=== PATIENT | male | born 1945 | race Caucasian/White ===

== ENCOUNTER 2021-06-06 23:58 | Inpatient (IN) | payer MEDICARE ==
[2021-06-07] MEDS ORDERED: MORPHINE SULFATE 4 MG/ML SYRINGE IV STA (00:05)
--- NOTE | 2021-06-07 00:13 | ED ---
Abdominal Pain HPI - General Stated Complaint: Nausea,Vomiting Time Seen by Provider: 06/07/21 00:04 Source: patient Mode of arrival: EMS Limitations: no limitations - History of Present Illness Initial Comments: 's patient is 76-year-old man who presents with complaint of periumbilical abdominal pain. It had started around 4 PM. The patient states that he is also having nausea and vomiting. He indicates the site of his previous umbilical hernia repair. Patient states that this surgery had been performed at [facility] approximately [address] Apodaca. Patient states that this. Last approximate 6 months and then recurred. MD Complaint: abdominal pain Onset/Timin -: hour(s) Location: periumbilical Radiation: none Migration to: no migration Severity: severe Severity scale (1-10): 10 Quality: aching Consistency: constant Improves With: nothing Worsens With: nothing Associated Symptoms: nausea, vomiting - Related Data Allergies Allergy/AdvReac Type Severity Reaction Status Date / Time Sulfa (Sulfonamide Allergy Rash/Hives Verified 06/07/21 01:33 Antibiotics) Review of Systems ROS Statement: Those systems with pertinent positive or pertinent negative responses have been documented in the HPI. ROS Other: All systems not noted in ROS Statement are negative. Constitutional: Denies: fever, chills Respiratory: Denies: cough, dyspnea Cardiovascular: Denies: chest pain, palpitations Gastrointestinal: Reports: abdominal pain, nausea, vomiting. Denies: diarrhea, hematemesis, melena, hematochezia Genitourinary: Denies: dysuria, hematuria Musculoskeletal: Denies: back pain Skin: Denies: rash Neurological: Denies: headache, weakness General Exam General appearance: alert, in no apparent distress Head exam: Present: atraumatic, normocephalic Eye exam: Present: normal appearance. Absent: scleral icterus, conjunctival injection ENT exam: Present: mucous membranes dry Neck exam: Present: normal inspection Respiratory exam: Present: normal lung sounds bilaterally. Absent: respiratory distress, wheezes, rales, rhonchi, stridor Cardiovascular Exam: Present: regular rate, normal rhythm, normal heart sounds. Absent: systolic murmur, diastolic murmur, rubs, gallop GI/Abdominal exam: Present: soft, hernia. Absent: distended, tenderness, guarding, rebound, rigid, mass Extremities exam: Present: normal inspection, normal capillary refill. Absent: pedal edema, calf tenderness Back exam: Present: normal inspection Neurological exam: Present: alert Skin exam: Present: warm, dry, intact, normal color. Absent: rash Course Vital Signs 06/07/21 06/07/21 00:07 02:35 Temperature 98.8 F Pulse Rate 95 97 Respiratory 20 18 Rate Blood Pressure 187/109 177/105 O2 Sat by Pulse 99 97 Oximetry Medical Decision Making - Lab Data Result diagrams: 06/07/21 00:22 06/07/21 00:22 Lab Results 06/07/21 06/07/21 06/07/21 Range/Units 00: 00:22 00:22 WBC 12.0 H (3.8-10.6) k/uL RBC 4.83 (4.30-5.90) m/uL Hgb 14.7 (13.0-17.5) gm/dL Hct 44.7 (39.0-53.0) % MCV 92.6 (80.0-100.0) fL MCH 30.4 (25.0-35.0) pg MCHC 32.8 (31.0-37.0) g/dL RDW 14.3 (11.5-15.5) % Plt Count 289 (150-450) k/uL MPV 7.7 Neutrophils % 81 % Lymphocytes % 11 % Monocytes % 6 % Eosinophils % 1 % Basophils % 0 % Neutrophils # 9.7 H (1.3-7.7) k/uL Lymphocytes # 1.3 (1.0-4.8) k/uL Monocytes # 0.7 (0-1.0) k/uL Eosinophils # 0.2 (0-0.7) k/uL Basophils # 0.1 (0-0.2) k/uL Sodium 134 L (137-145) mmol/L Potassium 4.4 (3.5-5.1) mmol/L Chloride 102 (98-107) mmol/L Carbon Dioxide 17 L (22-30) mmol/L Anion Gap 15 mmol/L BUN 30 H (9-20) mg/dL Creatinine 1.19 (0.66-1.25) mg/dL Est GFR (CKD-EPI)AfAm 69 (>60 ml/min/1.73 sqM) Est GFR (CKD-EPI)NonAf 60 (>60 ml/min/1.73 sqM) Glucose 130 H (74-99) mg/dL Plasma Lactic Acid Ronald 1.4 (0.7-2.0) mmol/L Calcium 10.1 (8.4-10.2) mg/dL Total Bilirubin 0.5 (0.2-1.3) mg/dL AST 25 (17-59) U/L ALT 14 (4-49) U/L Alkaline Phosphatase 110 (38-126) U/L Total Protein 7.3 (6.3-8.2) g/dL Albumin 4.3 (3.5-5.0) g/dL Amylase 57 (30-110) U/L Lipase 49 (23-300) U/L Disposition Clinical Impression: Ventral hernia with bowel obstruction Disposition: ADMITTED IP TO THIS [facility] Condition: Serious Is patient prescribed a controlled substance at d/c from ED?: No Referrals: Floyd Yin DO [REFERRING] - 1-2 days
[2021-06-07 00:28] LABS: Basophils # (A) 0.1 k/uL (0-0.2); Basophils % (A) 0 %; Eosinophils # (A) 0.2 k/uL (0-0.7); Eosinophils % (A) 1 %; HCT 44.7 % (39.0-53.0); HGB 14.7 gm/dL (13.0-17.5); Lymphocytes # (A) 1.3 k/uL (1.0-4.8); Lymphocytes % (A) 11 %; MCH 30.4 pg (25.0-35.0); MCHC 32.8 g/dL (31.0-37.0); MCV 92.6 fL (80.0-100.0); Mean Platelet Volume 7.7; Monocytes # (A) 0.7 k/uL (0-1.0); Monocytes % (A) 6 %; Neutrophils # (A) 9.7 k/uL (1.3-7.7); Neutrophils % (A) 81 %; Platelet Count 289 k/uL (150-450); RBC 4.83 m/uL (4.30-5.90); RDW 14.3 % (11.5-15.5)
[2021-06-07 00:39] LABS: Albumin 4.3 g/dL (3.5-5.0); Calcium 10.1 mg/dL (8.4-10.2); Potassium 4.4 mmol/L (3.5-5.1); Total Bilirubin 0.5 mg/dL (0.2-1.3); Total Protein 7.3 g/dL (6.3-8.2)
[2021-06-07] MEDS ORDERED: HYDROmorphone 1 MG/ML 1 ML SYRINGE IVP STA ×2 (01:19→05:02)
--- NOTE | 2021-06-07 02:58 | CT ---
EXAMINATION TYPE: CT abdomen pelvis wo con DATE OF EXAM: 06/07/2021 COMPARISON: None HISTORY: Pt has perturding hernia CT DLP: 1812.4 mGycm Automated exposure control for dose reduction was used. Images obtained from the diaphragm to the floor the pelvis without contrast. Lung bases are clear of consolidation. There is no pleural effusion. Heart size is normal. There is n o pericardial effusion. Liver and spleen are intact. Gallbladder is intact. Stomach is intact. There is a fluid-filled distended stomach. There is no pancreatic mass. There is no adrenal mass. Kidneys have normal size. There is no hydronephrosis. Ureters are not dilat ed. Bladder distends smoothly. 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 There is no free fluid in the pelvis. There are multiple dilated fluid-filled small bowel loops throughout the abdomen. Large bowel is not dilated. There is anterior abdominal wall hernia containing multiple small bowel loops. This appears to be transition point. The distal small bowel is not dilated. There is some incarceration of the sma ll bowel. There is no free air. There is no ascites. Lumbar vertebra have normal alignment. There is no compression fracture. There is multilevel vacuum d isks. Posterior elements are intact. The bony pelvis is intact. IMPRESSION: Incarcerated anterior abdominal wall ventral hernia containing dilated small bowel loops. hernia measuring 18 x 10 cm. The opening is 6 cm. There is mechanical small bowel obstruction. Small bowel dilated up to 4 cm.
--- NOTE | 2021-06-07 03:03 | XR ---
EXAMINATION TYPE: XR KUB portable DATE OF EXAM: 06/07/2021 COMPARISON: NONE HISTORY: NG tube placement TECHNIQUE: 2 views FINDINGS: There is nasogastric tube with the tip over the gastric fundus. There are some dilated smal l bowel loops in the mid abdomen. 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 Lung bases are clear. IMPRESSION: Dilated small bowel suggestive of small bowel obstruction. No free air. NG tube in good p osition in the gastric fundus.
[2021-06-07] MEDS ORDERED: HYDROmorphone 0.5 MG/0.5 ML SYRINGE IVP PRN (04:15)
[2021-06-07] MEDS ORDERED: ONDANSETRON 4 MG/2 ML VIAL IVP PRN (04:15)
[2021-06-07] MEDS ORDERED: NALOXONE 0.4 MG/ML 1 ML VIAL IV PRN (04:15)
[2021-06-07] MEDS ORDERED: LABETALOL 5 MG/ML VIAL MDV IVP STA (05:03)
[2021-06-07] MEDS: SODIUM CHLORIDE 0.9% 1,000 ML IV SCH (05:35)
[2021-06-07 05:48] LABS: Appearance,Urine Clear (Clear); Bilirubin,Urine Negative (Negative); Blood,Urine Negative (Negative); Color,Urine Yellow; Glucose,Urine (UA) Negative (Negative); Ketones,Urine 2+ (Negative); Leukocyte Esterase,Urine Negative (Negative); Nitrite,Urine Negative (Negative); PH, Urine 5.5 (5.0-8.0); Protein,Urine Negative (Negative); Specific Gravity,Urine 1.021 (1.001-1.035); Urobilinogen,Urine <2.0 mg/dL (<2.0)
[2021-06-07] MEDS: HYDROmorphone 1 MG/ML 1 ML SYRINGE IVP PRN (09:53)
--- NOTE | 2021-06-07 10:17 | XR ---
EXAMINATION TYPE: XR chest 1V portable DATE OF EXAM: 06/07/2021 10:01 AM COMPARISON: Radiograph same day CLINICAL INDICATION:Male, 76 years old with history of NG tube repositioned ; TECHNIQUE: Frontal view of the chest. FINDINGS: Lungs/Pleura: There is no evidence of pleural effusion, focal consolidation, or pneumothorax. Pulmonary vascularity: Unremarkable. Heart/mediastinum: Cardiomediastinal silhouette is unremarkable. Musculoskeletal: No acute osseous pathology. Lines/Tubes: Interval placement of nasogastric distal tip projecting in the gastric fundus. The side-port projects in the distal esophagus. IMPRESSION: 1. Interval placement of nasogastric tube with side-port in the distal esophagus. Consider advancemen t of 10 cm for optimal placement. 2. No acute cardiopulmonary disease/process.
[2021-06-07] MEDS ORDERED: BENZOCAINE/MENTHOL LOZENG 1 EACH LOZENGE MUCOUS MEM PRN (17:17)
[2021-06-08] MEDS: HYDROmorphone 1 MG/ML 1 ML SYRINGE IVP PRN (01:14)
[2021-06-08] MEDS: SODIUM CHLORIDE 0.9% 1,000 ML IV SCH ×3 (01:15→17:17)
--- NOTE | 2021-06-08 12:07 | P.GSHP ---
History of Present Illness H&P Date: 06/08/21 Chief Complaint: Incarcerated ventral hernia This a 76-year-old male who was admitted through the emergency room with complaints of abdominal pain nausea. The patient has a history of previous umbilical hernia repair. Patient is developed a recurrent incisional hernia at his repair site. Patient has a large incarcerated hernia. On CAT scan there is several incarcerated loop of small bowel within the hernia. Past Medical History Past Medical History: No Reported History History of Any Multi-Drug Resistant Organisms: None Reported Additional Past Surgical History / Comment(s): hernia surgery 2017 left knee replacement 2007 right knee replacement 2014 L hip 03/27 Past Psychological History: Depression Smoking Status: Unknown if ever smoked Past Drug Use History: Unable to Obtain Medications and Allergies Home Medications Medication Instructions Recorded Confirmed Type Aspirin EC [Ecotrin Low Dose] 81 mg PO DAILY 06/07/21 06/07/21 History Atorvastatin [Lipitor] 10 mg PO DAILY 06/07/21 06/07/21 History Citalopram Hydrobromide [CeleXA] 40 mg PO DAILY 06/07/21 06/07/21 History Doxazosin [Cardura] 1 mg PO DAILY 06/07/21 06/07/21 History HYDROcodone/APAP 5-325MG [[place] 1 tab PO TID PRN 06/07/21 06/07/21 History 5-325] Ibuprofen [Motrin] 600 mg PO Q8HR PRN 06/07/21 06/07/21 History Losartan/Hydrochlorothiazide 1 tab PO DAILY 06/07/21 06/07/21 History [Losartan-Hctz 100-25 mg Tab] Omeprazole [PriLOSEC] 20 mg PO AC-BID 06/07/21 06/07/21 History Testosterone Cypionate 200 mg IM Q14D 06/07/21 06/07/21 History [Depo-Testosterone] Timolol 0.5% Ophth Soln [Timoptic 1 drop BOTH EYES DAILY 06/07/21 06/07/21 History 0.5% Ophth Soln] buPROPion XL [Wellbutrin XL] 300 mg PO DAILY 06/07/21 06/07/21 History Allergies Allergy/AdvReac Type Severity Reaction Status Date / Time Sulfa (Sulfonamide Allergy Rash/Hives Verified 06/07/21 01:33 Antibiotics) Surgical - Exam Vital Signs Temp Pulse Resp BP Pulse Ox 98.8 F 95 20 187/109 99 06/07/21 00:07 06/07/21 00:07 06/07/21 00:07 06/07/21 00:07 06/07/21 00:07 - General well developed, no distress - Eyes PERRL - ENT normal pinna - Neck no masses - Respiratory normal expansion - Cardiovascular Rhythm: regular - Abdomen Large incisional hernia located near the umbilicus. Abdomen: soft, non tender Results - Labs 06/07/21 00:22 06/07/21 00:22 Assessment and Plan Assessment: Incarcerated incisional hernia. Patient will have nasogastric tube decompression today. We will repair his hernia once his condition is stable.
--- NOTE | 2021-06-08 12:08 | P.PN ---
Progress Note - Text Progress Note Date: 06/08/21 Patient feels better. He's had some flatus. On exam vital signs are stable. Abdomen soft. Incarcerated incisional hernia is soft her. Patient will undergo repair of incarcerated incisional hernia normal.
[2021-06-08] MEDS ORDERED: ACETAMINOPHEN TAB 325 MG TAB PO PRN (12:21)
[2021-06-08] MEDS ORDERED: HYDROcodone/APAP 5-325MG 1 EACH TAB PO PRN (14:10)
[2021-06-08] MEDS: HEPARIN SODIUM,PORCINE/PF 5,000 UNIT/0.5 ML SYRINGE SQ SCH ×2 (15:25→21:44)
[2021-06-08] MEDS: PANTOPRAZOLE 40 MG/10 ML VIAL IVP SCH (15:25)
--- NOTE | 2021-06-08 19:29 | CONS ---
CONSULTATION DATE OF SERVICE: 06/08/2021 REASON FOR CONSULTATION: Advice regarding depression and other medical issues, requested by Dr. Angel. HISTORY OF PRESENT ILLNESS: This 76-year-old gentleman with a past medical history of depression yesterday had knee surgery with left knee replacement, being followed by Dr. Yin in the outpatient setting, was admitted with incarcerated incisional hernia. There is no history of any fever, rigors or chills. No history of headache, loss of consciousness, seizures. Dr. Angel is planning surgery. Patient's sodium is 134. PAST MEDICAL HISTORY: History of hernia surgery, history of left knee replacement, history of depression. HOME MEDICATIONS: Reviewed. They include hydrocodone, aspirin, timolol, ibuprofen, omeprazole, losartan, doxazosin, Celexa, bupropion, Lipitor. ALLERGIES: SULFA. FAMILY HISTORY: No history of heart disease or strokes in the family. SOCIAL HISTORY: No history of smoking. No history of alcohol intake. REVIEW OF SYSTEMS: ENT: No diminished hearing. No diminished vision. CARDIOVASCULAR SYSTEM: No angina, palpitations. RESPIRATORY SYSTEM: As mentioned earlier. GI: As mentioned earlier. : No dysuria. NERVOUS SYSTEM: No numbness, weakness. ALLERGY/IMMUNOLOGY: No asthma or hay fever. MUSCULOSKELETAL: As mentioned earlier. HEMATOLOGY/ONCOLOGY: No history of anemia. ENDOCRINE: No history of diabetes or hypothyroidism. CONSTITUTIONAL: As mentioned earlier. DERMATOLOGY: Negative. RHEUMATOLOGY: Negative. PSYCHIATRY: As mentioned earlier. PHYSICAL EXAMINATION: Patient is alert and oriented x3. Pulse is 98, blood pressure 147/60, respiration 20, temperature 98 degrees, pulse ox 96% on room air. HEENT: Conjunctivae normal. NECK: No jugular venous distention. CARDIOVASCULAR: S1, S2 muffled. RESPIRATION: Breath sounds diminished at the bases. No rhonchi. No crackles. ABDOMEN: Soft. Ventral incisional hernia appreciated. Non-tender. No mass palpable. LEGS: No edema. No swelling. NERVOUS SYSTEM: Higher functions as mentioned earlier. Moves all 4 limbs. No focal motor or sensory deficit. LYMPHATICS: No lymph node palpable in neck, axillae or groin. SKIN: No ulcer, rash, bleeding. JOINTS: No active deforming arthropathy. LABS: WBC 12, sodium 134, glucose 130. ASSESSMENT: 1. Small-bowel obstruction, possibly secondary to incarcerated incisional hernia. 2. Hypertension. 3. Hyperlipidemia. 4. Increased white count. 5. Hyponatremia, mild. 6. History of hernia surgery. 7. History of left knee replacement. 8. History of depression. 9. Obesity with body mass index of 35.6. 10.FULL CODE. RECOMMENDATIONS AND DISCUSSION: In this 76-year-old gentleman who presented with multiple medical problems, at this time we will monitor the patient closely, continue the current medications, continue symptomatic treatment. Otherwise at this time, DVT prophylaxis. Resume the home medication. Monitor blood pressure closely. Will follow the patient closely with you. The patient's exercise tolerance appears to be excellent. The patient may be asked to follow up with primary physician after discharge. Thank you, Dr. Angel, for letting us participate in the care of this patient. CRISTIANL / NOAN: [id number] /
[2021-06-09] MEDS ORDERED: ceFAZolin 3 GM in SODIUM CHLORIDE 0.9% 100 ML IVPB PRN (05:00)
[2021-06-09] MEDS: HEPARIN SODIUM,PORCINE/PF 5,000 UNIT/0.5 ML SYRINGE SQ SCH ×3 (09:24→19:41)
[2021-06-09] MEDS: TIMOLOL 0.5% OPHTH DROPS 5 ML BTL BOTH EYES SCH (09:29)
[2021-06-09] MEDS: PANTOPRAZOLE 40 MG/10 ML VIAL IVP SCH (09:29)
[2021-06-09 11:38] LABS: Basophils % (A) 0 %; Eosinophils # (A) 0.1 k/uL (0-0.7); Eosinophils % (A) 1 %; HCT 38.7 % (39.0-53.0); HGB 12.6 gm/dL (13.0-17.5); Lymphocytes # (A) 0.9 k/uL (1.0-4.8); Lymphocytes % (A) 19 %; MCH 31.1 pg (25.0-35.0); MCHC 32.4 g/dL (31.0-37.0); MCV 95.9 fL (80.0-100.0); Mean Platelet Volume 7.7; Monocytes # (A) 0.4 k/uL (0-1.0); Monocytes % (A) 9 %; Neutrophils # (A) 3.3 k/uL (1.3-7.7); Neutrophils % (A) 68 %; Platelet Count 229 k/uL (150-450); RBC 4.04 m/uL (4.30-5.90); RDW 14.4 % (11.5-15.5); WBC 4.9 k/uL (3.8-10.6)
[2021-06-09 11:55] LABS: African American GFR (CKD) >90 (>60 ml/min/1.73 sqM); Anion Gap 7 mmol/L; Blood Urea Nitrogen 22 mg/dL (9-20); Calcium 8.7 mg/dL (8.4-10.2); Carbon Dioxide 23 mmol/L (22-30); Chloride 107 mmol/L (98-107); Glucose 89 mg/dL (74-99); Non-African American GFR(CKD) 78 (>60 ml/min/1.73 sqM); Sodium 137 mmol/L (137-145)
[2021-06-09] MEDS: LOSARTAN-HCTZ 50-12.5 MG 1 EACH TAB PO SCH (13:29)
[2021-06-09] MEDS: buPROPion XL 300 MG TAB.ER.24H PO SCH (13:29)
[2021-06-09] MEDS: CITALOPRAM HYDROBROMIDE 20 MG TAB PO SCH (13:29)
[2021-06-09] MEDS: DOXAZOSIN 1 MG TAB PO SCH (13:29)
[2021-06-09] MEDS ORDERED: IV FLUID CONTINUATION 400 ML IV ONE (14:20)
[2021-06-09] MEDS ORDERED: ONDANSETRON 4 MG/2 ML VIAL IVP ONE (14:30)
[2021-06-09] MEDS ORDERED: DEXAMETHASONE SOD PHOSPHATE 4 MG/ML 1 ML VIAL IV ONE (14:30)
--- NOTE | 2021-06-09 14:39 | P.PN ---
Progress Note - Text Progress Note Date: 06/09/21 Patient will be scheduled for repair of incarcerated incisional hernia today.
[2021-06-09] MEDS ORDERED: ROCURONIUM 10 MG/ML (5 ML VIAL) IV ONE (15:00)
[2021-06-09] MEDS ORDERED: SUCCINYLCHOLINE CHLORIDE 100 MG/5 ML SYR IV ONE (15:00)
[2021-06-09] MEDS ORDERED: GLYCOPYRROLATE 0.2 MG/ML 2 ML VIAL ONE (15:00)
[2021-06-09] MEDS ORDERED: KETOROLAC 15 MG/ML 1 ML VIAL ONE (15:00)
[2021-06-09] MEDS ORDERED: PROPOFOL 10 MG/ML 20 ML VIAL IV ONE (15:00)
[2021-06-09] MEDS ORDERED: KETAMINE 10 MG/ML 20 ML VIAL ONE (15:00)
[2021-06-09] MEDS ORDERED: fentaNYL (PF) 50 MCG/ML 2 ML AMP ONE (15:00)
[2021-06-09] MEDS ORDERED: LIDOCAINE 1% INJ 10MG/ML (20 ML MDV) ONE (15:00)
[2021-06-09] MEDS ORDERED: NEOSTIGMINE 1 MG/ML 10 ML VIAL ONE (15:00)
[2021-06-09] MEDS ORDERED: MIDAZOLAM 2 MG/2 ML VIAL ONE (15:00)
[2021-06-09] MEDS ORDERED: HYDROmorphone 1 MG/ML 1 ML SYRINGE IVP PRN (16:20)
--- NOTE | 2021-06-09 16:20 | P.OP ---
Date of Procedure: 06/09/21 Preoperative Diagnosis: Incarcerated incisional hernia Postoperative Diagnosis: Incarcerated incisional hernia Procedure(s) Performed: Open repair of incarcerated incisional hernia with mesh Anesthesia: SHEELA Surgeon: Daniel Angel Estimated Blood Loss (ml): 25 Pathology: other (Hernia sac) Condition: stable Disposition: PACU Description of Procedure: The patient's placed on the operative table in supine position. He received general endotracheal tube anesthesia. His abdomen was prepped and draped usual fashion. The skin was incised in midline at the hernia. Using blunt sharp dissection with cautery the hernia sac was dissected free from subcutaneous tissues. Hernia sac was opened and contained incarcerated small bowel. This placed back within the peritoneal cavity. The hernia sac was excised and sent to pathology. The fascial defect was closed with. 0 Ethibond suture. #1 Marya fix suture was used to buttress the repair. A piece of Prolene mesh was placed over top apparent secured was secure strap tacker. A ALINE drains placed over top of the repair brought through separate stab incision. The Main's fascia closed with 0 Vicryl. Skin was closed with elvin. Patient top she will he was sent to recovery in stable condition. The hernia measured approximately 15 x 5 cm
[2021-06-09] MEDS ORDERED: LABETALOL 5 MG/ML VIAL MDV IV ONE ×2 (16:30→16:45)
[2021-06-09] MEDS ORDERED: LACTATED RINGERS 1,000 ML IV ONE (16:31)
[2021-06-09] MEDS ORDERED: HYDROmorphone 0.5 MG/0.5 ML SYRINGE IVP ONE (16:43)
[2021-06-09] MEDS ORDERED: hydrALAZINE HCL 20 MG/ML 1 ML VIAL IVP PRN (17:31)
--- NOTE | 2021-06-09 18:54 | PN ---
PROGRESS NOTE DATE OF SERVICE: 06/09/2021 This 76-year-old gentleman who was admitted with inguinal hernia and possibly incarceration is being slated for surgery by Dr. Angel. No chest pain. No palpitations. No fever. Patient underwent open repair of incarcerated incisional hernia with mesh. No chest pain. No palpitations. No fever. PHYSICAL EXAMINATION: Alert and oriented x3. Pulse 77, blood pressure 117/85, respiration 18, temperature 98.2, pulse ox 98% on 2 L. HEENT: Conjunctivae normal. Oral mucosa moist. NECK: No jugular venous distention. No lymph node enlargement. CARDIOVASCULAR: S1, S2, muffled. No S3, no S4, RESPIRATORY: Diminished breath sounds at the bases. No rhonchi, no crackles. ABDOMEN: Soft. Incisional hernia present. LEGS: No edema, no swelling. NERVOUS SYSTEM: No focal deficits. LABS: WBC 4, hemoglobin 12.6. Other labs are noted. ASSESSMENT: 1. Small-bowel obstruction possibly secondary to incarcerated incisional hernia status post open repair of incarcerated incisional hernia with mesh. 2. Hypertension. 3. Hyperlipidemia. 4. Increased WBC. 5. Hyponatremia, mild. 6. History of hernia surgery. 7. History of left knee replacement. 8. History of depression. 9. Obesity with body mass index of 35.6. 10.FULL CODE. RECOMMENDATIONS: Recommend to continue current medications and symptomatic treatment. Monitor blood pressure closely. We will initiate Norvasc to the current regimen and use hydralazine p.r.n. Further recommendations to follow. MMODL / IJN: [id number] /
[2021-06-09] MEDS: HYDROmorphone 1 MG/ML 1 ML SYRINGE IVP PRN (19:40)
[2021-06-09] MEDS: amLODIPine 10 MG TAB PO SCH (19:43)
[2021-06-09] MEDS: SODIUM CHLORIDE 0.9% 1,000 ML IV SCH (21:30)
[2021-06-10] MEDS: SODIUM CHLORIDE 0.9% 1,000 ML IV SCH ×2 (00:39→17:20)
[2021-06-10] MEDS ORDERED: HYDROcodone/APAP 5-325MG 1 EACH TAB PO PRN (09:22)
[2021-06-10] MEDS: PANTOPRAZOLE 40 MG/10 ML VIAL IVP SCH (09:24)
[2021-06-10] MEDS: DOXAZOSIN 1 MG TAB PO SCH (09:24)
[2021-06-10] MEDS: LOSARTAN-HCTZ 50-12.5 MG 1 EACH TAB PO SCH (09:24)
[2021-06-10] MEDS: CITALOPRAM HYDROBROMIDE 20 MG TAB PO SCH (09:24)
[2021-06-10] MEDS: amLODIPine 10 MG TAB PO SCH (09:24)
[2021-06-10] MEDS: buPROPion XL 300 MG TAB.ER.24H PO SCH (09:24)
[2021-06-10] MEDS: HEPARIN SODIUM,PORCINE/PF 5,000 UNIT/0.5 ML SYRINGE SQ SCH ×2 (09:24→21:11)
[2021-06-10] MEDS: TIMOLOL 0.5% OPHTH DROPS 5 ML BTL BOTH EYES SCH (09:26)
--- NOTE | 2021-06-10 14:00 | P.DS ---
Providers Date of admission: 06/07/21 04:16 Expected date of discharge: 06/10/21 Attending physician: Daniel Angel Consults: 06/08/21 12:08 Consult Physician Routine Consulting Provider: Dhiraj Webb Consult Reason/Comments: Medical management Do you want consulting provider notified?: Yes Primary care physician: Tom Yin Hospital Course: Discharge diagnosis 1. Incarcerated incisional hernia status post open repair of incarcerated incisional hernia with mesh Hospital course This a 76-year-old male who was admitted through the emergency room with complaints of abdominal pain nausea. The patient has a history of previous umbilical hernia repair. Patient is developed a recurrent incisional hernia at his repair site. Patient has a large incarcerated hernia. On CAT scan there is several incarcerated loop of small bowel within the hernia. Patient status post open repair of incarcerated incisional hernia with mesh. Patient tolerated surgery well. Pain is controlled. He has been up and ambulating. He is tolerating diet. He is having flatus. Afebrile. He is stable for discharge. Please refer to chart for any further details. Physician [place] note has been reviewed by physician. Signing provider agrees with the documented findings, assessment, and plan of care. Patient Condition at Discharge: Stable Plan - Discharge Summary New Discharge Prescriptions: Continue Aspirin EC [Ecotrin Low Dose] 81 mg PO DAILY Timolol 0.5% Ophth Soln [Timoptic 0.5% Ophth Soln] 1 drop BOTH EYES DAILY Testosterone Cypionate [Depo-Testosterone] 200 mg IM Q14D Omeprazole [PriLOSEC] 20 mg PO AC-BID Atorvastatin [Lipitor] 10 mg PO DAILY HYDROcodone/APAP 5-325MG [[place] 5-325] 1 tab PO TID PRN PRN Reason: Pain Ibuprofen [Motrin] 600 mg PO Q8HR PRN PRN Reason: Pain Losartan/Hydrochlorothiazide [Losartan-Hctz 100-25 mg Tab] 1 tab PO DAILY Doxazosin [Cardura] 1 mg PO DAILY Citalopram Hydrobromide [CeleXA] 40 mg PO DAILY buPROPion XL [Wellbutrin XL] 300 mg PO DAILY Discharge Medication List Aspirin EC [Ecotrin Low Dose] 81 mg PO DAILY 06/07/21 [History] Atorvastatin [Lipitor] 10 mg PO DAILY 06/07/21 [History] Citalopram Hydrobromide [CeleXA] 40 mg PO DAILY 06/07/21 [History] Doxazosin [Cardura] 1 mg PO DAILY 06/07/21 [History] HYDROcodone/APAP 5-325MG [[place] 5-325] 1 tab PO TID PRN 06/07/21 [History] Ibuprofen [Motrin] 600 mg PO Q8HR PRN 06/07/21 [History] Losartan/Hydrochlorothiazide [Losartan-Hctz 100-25 mg Tab] 1 tab PO DAILY 06/07/21 [History] Omeprazole [PriLOSEC] 20 mg PO AC-BID 06/07/21 [History] Testosterone Cypionate [Depo-Testosterone] 200 mg IM Q14D 06/07/21 [History] Timolol 0.5% Ophth Soln [Timoptic 0.5% Ophth Soln] 1 drop BOTH EYES DAILY 06/07/21 [History] buPROPion XL [Wellbutrin XL] 300 mg PO DAILY 06/07/21 [History] Follow up Appointment(s)/Referral(s): Floyd Yin DO [REFERRING] - 1-2 days Daniel Angel MD [STAFF PHYSICIAN] - 1 Week Activity/Diet/Wound Care/Special Instructions: No driving while taking [place] No lifting over 10 pounds You may shower. No soaking or tub baths for 2 weeks Very light activity until you are reevaluated at your follow up appointment with your surgeon Discharge Disposition: HOME SELF-CARE
--- NOTE | 2021-06-10 14:51 | PN ---
PROGRESS NOTE DATE OF SERVICE: 06/10/2021 This 76 -year-old gentleman who was admitted with small bowel obstruction, possibly secondary to incarcerated incisional hernia had surgery by Dr. Angel. No chest pain. The patient has hypertension. PHYSICAL EXAMINATION: Alert and oriented times three. Pulse 81, blood pressure 161/77, respiration 17, temperature 97.8, pulse ox 85 percent on room air. HEENT is conjunctivae normal. Neck: No JVD. Cardiovascular: S1, S2 muffled. Respirations: Breath sounds diminished in the bases. A few scattered rhonchi and crackles. Abdomen: Soft, nontender. Status post surgery. Legs are no edema. No swelling. LAB STUDIES: WBC 4.1, hemoglobin 12.6. ASSESSMENT: 1. Small-bowel obstruction possibly secondary to incarcerated incisional hernia status post open repair of incarcerated incisional hernia with mesh. 2. Hypertension. 3. Hyperlipidemia. 4. Increased WBC. 5. Hyponatremia, mild. 6. History of hernia surgery. 7. History of left_replacement. 8. History of depression. 9. Obesity with body mass of 35.6. 10.FULL CODE. RECOMMENDATIONS AND DISCUSSION: Recommend to continue current medications, management and symptomatic treatment. Add Norvasc to the current regimen. Follow with the primary physician in 2-3 days. Follow with surgery as recommended. Further recommendations per surgery. Further recommendations to follow. MMODL / IJN: [id number] / MTDD
[2021-06-10 15:59] LABS: HCT 39.9 % (39.0-53.0); HGB 13.1 gm/dL (13.0-17.5); MCH 31.9 pg (25.0-35.0); MCHC 32.9 g/dL (31.0-37.0); MCV 96.9 fL (80.0-100.0); Mean Platelet Volume 7.9; Platelet Count 296 k/uL (150-450); RBC 4.11 m/uL (4.30-5.90); RDW 14.5 % (11.5-15.5); WBC 9.8 k/uL (3.8-10.6)
[2021-06-10] MEDS: HYDROmorphone 1 MG/ML 1 ML SYRINGE IVP PRN (21:11)
[2021-06-11] MEDS: SODIUM CHLORIDE 0.9% 1,000 ML IV SCH (04:20)
[2021-06-11] MEDS: LOSARTAN-HCTZ 50-12.5 MG 1 EACH TAB PO SCH (08:06)
[2021-06-11] MEDS: DOXAZOSIN 1 MG TAB PO SCH (08:06)
[2021-06-11] MEDS: CITALOPRAM HYDROBROMIDE 20 MG TAB PO SCH (08:06)
[2021-06-11] MEDS: buPROPion XL 300 MG TAB.ER.24H PO SCH (08:07)
[2021-06-11] MEDS: TIMOLOL 0.5% OPHTH DROPS 5 ML BTL BOTH EYES SCH (08:07)
[2021-06-11] MEDS: HEPARIN SODIUM,PORCINE/PF 5,000 UNIT/0.5 ML SYRINGE SQ SCH (08:07)
[2021-06-11] MEDS: PANTOPRAZOLE 40 MG/10 ML VIAL IVP SCH (08:07)
[2021-06-11] MEDS: amLODIPine 10 MG TAB PO SCH (08:07)
[2021-06-11 12:23] VITALS: BP 157/77; PULSE 87; RESP 17; TEMP 97.8
== END 2021-06-11 14:26 | disposition home health service (06) | DRG 354 ==
LOC: SUPCPDRO 23:58 → EC 23:58 → 6NMEDSUR 06-07 04:16 → 5NMEDONC 06-07 11:21
PROVIDERS: ADMIT Surgery; ATTEND Surgery
PROC: 0WUF0JZ Supplement Abdominal Wall with Synthetic Substitute, Open Approach (ICD-10-PCS; principal; 2021-06-09 07:30)
DX: K43.0 Incisional hernia with obstruction, without gangrene (principal); E87.1 Hypo-osmolality and hyponatremia; E66.9 Obesity, unspecified; E78.5 Hyperlipidemia, unspecified; F32.A Depression, unspecified; I10 Essential (primary) hypertension; Z68.35 Body mass index [BMI] 35.0-35.9, adult; Z79.82 Long term (current) use of aspirin; Z79.899 Other long term (current) drug therapy; Z96.653 Presence of artificial knee joint, bilateral; Z20.822 Contact with and (suspected) exposure to COVID-19
CPT/HCPCS: 36415; 71045; 74018; 74176; 80048; 80053; 81003; 82150; 83605; 83690; 85025; 85027; 87635; 88302; 96374; 96375; 99285